=== PATIENT | female | born 1955 | race Caucasian/White ===

== ENCOUNTER → 2017-10-14 14:52 | Outpatient (CLI) | payer OTHER, SELFPAY ==
[2017-10-14 17:40] LABS: Alanine Aminotransferase 25 IU/L (9-52); Aspartate Aminotransferase 31 IU/L (14-36)
[2017-10-14 18:10] LABS: Thyroid Stimulating Hormone 6.65 uIU/mL (0.47-4.68)
== END ==
PROVIDERS: PCP Physician Assistant; Visit Provider Naturopath
DX: E06.3 Autoimmune thyroiditis (principal); R94.5 Abnormal results of liver function studies
CPT/HCPCS: 36415; 84443; 84450; 84460

== ENCOUNTER → 2017-12-27 15:11 | Outpatient (CLI) | payer OTHER, SELFPAY ==
[2017-12-27 16:51] LABS: Free T3, Triiodothyronine Free 2.13 pg/mL (2.77-5.27); Free T4, Direct Thyroxine 0.35 ng/dL (0.78-2.19)
== END ==
PROVIDERS: PCP Physician Assistant; Visit Provider Naturopath
DX: E06.3 Autoimmune thyroiditis (principal)
CPT/HCPCS: 36415; 84439; 84443; 84481

== ENCOUNTER → 2018-02-17 07:38 | Outpatient (CLI) | payer OTHER, SELFPAY ==
[2018-02-17 08:49] LABS: Phosphorous 4.7 mg/dL (2.8-4.1)
[2018-02-17 09:07] LABS: Free T4, Direct Thyroxine 1.41 ng/dL (0.78-2.19)
[2018-02-17 09:21] LABS: Thyroid Stimulating Hormone 7.01 uIU/mL (0.47-4.68)
[2018-02-18 14:27] LABS: Parathyroid Hormone Int 32 pg/mL (14-64)
[2018-02-23 15:56] LABS: N-Telopeptide Serum 27.3 nM BCE (6.2-19.0)
== END ==
PROVIDERS: PCP Physician Assistant; Visit Provider Nurse Practitioner
DX: M81.0 Age-related osteoporosis without current pathological fracture (principal); E03.9 Hypothyroidism, unspecified
CPT/HCPCS: 36415; 82310; 82523; 83970; 84100; 84439; 84443

== ENCOUNTER → 2018-02-23 14:34 | Outpatient (CLI) | payer OTHER, SELFPAY ==
[2018-02-23 15:36] LABS: Add Manual Diff / Slide Review NO; Basophils Percent Auto 0.5 % (0-2); Eosinophils Percent Auto 0.7 % (2-4); Hematocrit 37.4 % (36-46); Hemoglobin 13.4 g/dL (12.0-16.0); Mean Corpuscular HGB Conc 35.8 % (30-36); Mean Corpuscular Hemoglobin 34.2 PG (26-34); Mean Corpuscular Volume 95.5 fL (80-100); Monocytes Percent Auto 5.5 % (3-14); Neutrophils Absolute Auto 2600 /uL (3000-5900); Neutrophils Percent Auto 69.3 % (50-75); Platelet Count 152 X10^3/uL (150-400); Red Blood Cell Count 3.91 X10^6/uL (4.0-5.2); Red Cell Distribution Width 12.8 % (11.6-14.8); White Blood Cell Count 3.8 X10^3/uL (4.5-11.0)
== END ==
PROVIDERS: PCP Physician Assistant; Visit Provider Internal Medicine Hematology & Oncology
DX: D72.819 Decreased white blood cell count, unspecified (principal)
CPT/HCPCS: 36415; 85025

== ENCOUNTER → 2018-04-04 14:25 | Outpatient (CLI) | payer OTHER, SELFPAY ==
[2018-04-04 15:04] LABS: Hematocrit 39.8 % (36-46); Hemoglobin 13.9 g/dL (12.0-16.0); Mean Corpuscular HGB Conc 34.9 % (30-36); Mean Corpuscular Hemoglobin 32.8 PG (26-34); Mean Corpuscular Volume 93.8 fL (80-100); Platelet Count 135 X10^3/uL (150-400); Red Blood Cell Count 4.24 X10^6/uL (4.0-5.2); Red Cell Distribution Width 11.9 % (11.6-14.8); White Blood Cell Count 4.4 X10^3/uL (4.5-11.0)
[2018-04-04 15:49] LABS: Alanine Aminotransferase 42 IU/L (9-52); Albumin 4.4 g/dL (3.5-5.0); Albumin Globulin Ratio 1.2 (1.0-2.8); Alkaline Phosphatase 73 U/L (38-126); Aspartate Aminotransferase 44 IU/L (14-36); BUN Creatinine Ratio 16.7 (6-22); Bilirubin Total 0.5 mg/dL (0.2-1.3); Blood Urea Nitrogen 10 mg/dL (7-17); Calcium 9.2 mg/dL (8.4-10.2); Carbon Dioxide 29 mmol/L (22-32); Chloride 98 mmol/L (98-107); Estimated Glomerular Filt Rate > 60.0 mL/min (>60); Globulin 3.6 g/dL (1.7-4.1); Glucose 93 mg/dL (80-110); HEMOLYSIS < 15 (0-50); Sodium 137 mmol/L (137-145)
[2018-04-04 16:44] LABS: RBC Morphology Normal Morphology
== END ==
PROVIDERS: PCP Physician Assistant; Visit Provider Internal Medicine Hematology & Oncology
DX: D75.9 Disease of blood and blood-forming organs, unspecified (principal)
CPT/HCPCS: 36415; 80053; 85025

== ENCOUNTER → 2018-05-26 12:16 | Outpatient (CLI) | payer OTHER, SELFPAY | PROVIDERS: PCP Physician Assistant; Visit Provider Physician Assistant | DX: R68.89 Other general symptoms and signs (principal) | CPT/HCPCS: 87400 ==

== ENCOUNTER → 2018-06-16 13:32 | Outpatient (CLI) | payer OTHER, SELFPAY ==
[2018-06-16 14:44] LABS: Free T3, Triiodothyronine Free 3.55 pg/mL (2.77-5.27); Free T4, Direct Thyroxine 1.91 ng/dL (0.78-2.19)
[2018-06-16 14:58] LABS: Thyroid Stimulating Hormone 0.38 uIU/mL (0.47-4.68)
[2018-06-18 18:17] LABS: Thyroid Peroxidase Antibodies 175 IU/mL (< 9)
== END ==
PROVIDERS: Family Provider Nurse Practitioner; PCP Physician Assistant; Visit Provider Naturopath
DX: E06.3 Autoimmune thyroiditis (principal)
CPT/HCPCS: 36415; 84439; 84443; 84481; 86376

== ENCOUNTER → 2018-08-17 16:01 | Outpatient (CLI) | payer OTHER, SELFPAY ==
[2018-08-17 18:41] LABS: Thyroid Stimulating Hormone 0.16 uIU/mL (0.47-4.68)
== END ==
PROVIDERS: Family Provider Physician Assistant; PCP Physician Assistant; Visit Provider Naturopath
DX: E06.3 Autoimmune thyroiditis (principal)
CPT/HCPCS: 36415; 84443

== ENCOUNTER → 2018-11-08 13:47 | Outpatient (CLI) | payer OTHER, SELFPAY ==
[2018-11-08 15:17] LABS: Free T3, Triiodothyronine Free 2.49 pg/mL (2.77-5.27)
[2018-11-08 15:31] LABS: Thyroid Stimulating Hormone 2.94 uIU/mL (0.47-4.68)
== END ==
PROVIDERS: Family Provider Physician Assistant; PCP Physician Assistant; Visit Provider Naturopath
DX: E06.3 Autoimmune thyroiditis (principal)
CPT/HCPCS: 36415; 84443; 84481

== ENCOUNTER → 2019-02-03 14:18 | Outpatient (CLI) | payer OTHER, SELFPAY ==
[2019-02-03 15:52] LABS: Free T3, Triiodothyronine Free 3.75 pg/mL (2.77-5.27)
[2019-02-03 16:06] LABS: Thyroid Stimulating Hormone 0.23 uIU/mL (0.47-4.68)
== END ==
PROVIDERS: Family Provider Physician Assistant; PCP Physician Assistant; Visit Provider Naturopath
DX: E06.3 Autoimmune thyroiditis (principal)
CPT/HCPCS: 36415; 84443; 84481

== ENCOUNTER → 2019-05-30 13:36 | Outpatient (CLI) | payer OTHER, SELFPAY ==
[2019-05-30 15:19] LABS: Free T4, Direct Thyroxine 1.49 ng/dL (0.78-2.19)
[2019-05-30 15:33] LABS: Thyroid Stimulating Hormone 0.07 uIU/mL (0.47-4.68)
== END ==
PROVIDERS: Family Provider Physician Assistant; PCP Naturopath; Referring Provider Naturopath; Visit Provider Naturopath
DX: E06.3 Autoimmune thyroiditis (principal)
CPT/HCPCS: 36415; 84439; 84443; 84481; 86376

== ENCOUNTER → 2019-08-09 14:03 | Outpatient (CLI) | payer OTHER, SELFPAY ==
[2019-08-09 16:40] LABS: Thyroid Stimulating Hormone 0.65 uIU/mL (0.47-4.68)
== END ==
PROVIDERS: Family Provider Physician Assistant; PCP Naturopath; Referring Provider Naturopath; Visit Provider Naturopath
DX: E06.3 Autoimmune thyroiditis (principal)
CPT/HCPCS: 36415; 84443

== ENCOUNTER → 2019-10-12 13:47 | Outpatient (CLI) | payer OTHER, SELFPAY ==
[2019-10-12 15:38] LABS: Free T3, Triiodothyronine Free 3.07 pg/mL (2.77-5.27); Free T4, Direct Thyroxine 1.25 ng/dL (0.78-2.19)
[2019-10-12 15:52] LABS: Thyroid Stimulating Hormone 0.741 uIU/mL (0.47-4.68)
== END ==
PROVIDERS: Family Provider Physician Assistant; PCP Naturopath; Referring Provider Naturopath; Visit Provider Naturopath
DX: E06.3 Autoimmune thyroiditis (principal)
CPT/HCPCS: 36415; 84439; 84443; 84481

== ENCOUNTER → 2020-10-01 07:36 | Outpatient (CLI) | payer OTHER, SELFPAY ==
[2020-10-01 09:33] LABS: Add Manual Diff / Slide Review NO; Basophils Absolute Auto 0 /uL (0-100); Basophils Percent Auto 0.6 % (0-2); Eosinophils Absolute Auto 200 /uL (0-450); Eosinophils Percent Auto 5.7 % (2-4); Hematocrit 39.5 % (36-46); Lymphocytes Absolute Auto 1100 /uL (1100-4500); Lymphocytes Percent Auto 33.6 % (25-40); Mean Corpuscular HGB Conc 35.5 % (30-36); Mean Corpuscular Hemoglobin 32.8 PG (26-34); Mean Corpuscular Volume 92.5 fL (80-100); Monocytes Absolute Auto 200 /uL (0-900); Neutrophils Absolute Auto 1800 /uL (1500-7000); Neutrophils Percent Auto 54.1 % (50-75); Platelet Count 157 X10^3/uL (150-400); Red Blood Cell Count 4.27 X10^6/uL (4.0-5.2); White Blood Cell Count 3.4 X10^3/uL (4.5-11.0)
[2020-10-01 09:45] LABS: Alanine Aminotransferase 27 IU/L (<35); Albumin 4.4 g/dL (3.5-5.0); Albumin Globulin Ratio 1.1 (1.0-2.8); Alkaline Phosphatase 59 U/L (38-126); Aspartate Aminotransferase 45 IU/L (14-36); BUN Creatinine Ratio 21.7 (6-22); Bilirubin Total 0.6 mg/dL (0.2-1.3); Blood Urea Nitrogen 13 mg/dL (7-17); Calcium 9.2 mg/dL (8.4-10.2); Carbon Dioxide 30 mmol/L (22-32); Chloride 100 mmol/L (98-107); Cholesterol 222 mg/dL (140-199); Estimated Glomerular Filt Rate > 60.0 mL/min (>60); Glucose 95 mg/dL (80-110); HDL Cholesterol 66 mg/dL (40-60); HEMOLYSIS < 15 (0-50); LDL Cholesterol Calculated 135 mg/dL (<100); Potassium 3.8 mmol/L (3.4-5.1); Sodium 137 mmol/L (137-145); Total Protein 8.4 g/dL (6.3-8.2); Triglycerides 107 mg/dL (35-150)
[2020-10-01 10:16] LABS: Thyroid Stimulating Hormone 9.22 uIU/mL (0.47-4.68)
[2020-10-02 06:07] LABS: Thyroid Peroxidase Antibodies 173 IU/mL (0-34)
== END ==
PROVIDERS: Family Provider Physician Assistant; PCP Naturopath; Referring Provider Naturopath; Visit Provider Naturopath
DX: Z00.00 Encounter for general adult medical examination without abnormal findings (principal); E06.3 Autoimmune thyroiditis
CPT/HCPCS: 36415; 80053; 80061; 84443; 85025; 86376

== ENCOUNTER → 2020-10-18 14:19 | Outpatient (CLI) | payer OTHER, SELFPAY ==
[2020-10-18 15:19] LABS: Add Manual Diff / Slide Review NO; Basophils Absolute Auto 0 /uL (0-100); Basophils Percent Auto 0.5 % (0-2); Eosinophils Absolute Auto 200 /uL (0-450); Eosinophils Percent Auto 4.6 % (2-4); Hematocrit 38.3 % (36-46); Hemoglobin 13.5 g/dL (12.0-16.0); Lymphocytes Absolute Auto 1300 /uL (1100-4500); Lymphocytes Percent Auto 30.8 % (25-40); Mean Corpuscular HGB Conc 35.1 % (30-36); Mean Corpuscular Hemoglobin 32.9 PG (26-34); Mean Corpuscular Volume 93.7 fL (80-100); Monocytes Absolute Auto 300 /uL (0-900); Monocytes Percent Auto 6.3 % (3-14); Neutrophils Absolute Auto 2500 /uL (1500-7000); Neutrophils Percent Auto 57.8 % (50-75); Platelet Count 159 X10^3/uL (150-400); Red Blood Cell Count 4.09 X10^6/uL (4.0-5.2); Red Cell Distribution Width 12.8 % (11.6-14.8); White Blood Cell Count 4.3 X10^3/uL (4.5-11.0)
[2020-10-18 16:04] LABS: Thyroid Stimulating Hormone 1.07 uIU/mL (0.47-4.68)
== END ==
PROVIDERS: Family Provider Physician Assistant; PCP Naturopath
DX: E06.3 Autoimmune thyroiditis (principal); D70.8 Other neutropenia
CPT/HCPCS: 36415; 84443; 85025

== ENCOUNTER 2020-11-28 11:49 | Outpatient (RCR) | payer MEDICARE, OTHER, SELFPAY ==
--- NOTE | 2020-11-28 15:26 | PT.OIE ---
Current Diagnoses Benign paroxysmal vertigo, right ear (11/28/20) Past Surgical History History of tonsillectomy Status post hysterectomy Visit Care Team Role Provider Type Mariola Diaz ND Primary Care Provider Non-Staff Specialty: Naturopathy Address: [address] [place] [address] Email: Alessandro Meyers MD Attending Provider Physician Referring Provider Specialty: Ear, Nose, Throat Address: [address] [place] [address] Email: [email or web address] Physical Therapy Initial Evaluation PT-OP-A Visit Information Start: 11/28/20 15:16 Freq: Status: Active Protocol: Document 11/28/20 12:00 DCW (Rec: 11/28/20 15:26 [facility] [id number]) Out-Patient Physical Therapy Visit Information Visit Information Visit Type Initial Evaluation Visit Start Time 12:00 Visit Stop Time 12:40 Total Visit Minutes 40 Visit Number 1 Number of PICKER FEEDER Visits 0 Evaluation Information Evaluation Date 11/28/20 PT-OP-B Current Condition Start: 11/28/20 15:16 Freq: Status: Active Protocol: Document 11/28/20 12:00 DCW (Rec: 11/28/20 15:26 [facility] [id number]) Current Condition History of Current Condition Onset Date 3 Months Current Complaints Positional vertigo History of Current Condition Pt is a 65 year old female complaining of a three month history of motion-induced vertigo. Pt reports episodes last a few seconds, and are provoked by turning over in bed or looking up. Pt denies recent hearing changes, tinnitus, diplopia, dysarthria , discoordination, or decreased mentation/ consciousness. Pt denies hx of HTN, hyperlipidemia, diabetes , arrhythmia, head trauma, seizure, or CVA. Treatment Goals Patient/Caregiver Goals Eliminate vertigo PT-OP-C Subjective Start: 11/28/20 15:16 Freq: Status: Active Protocol: Document 11/28/20 12:00 DCW (Rec: 11/28/20 15:26 DC[facility] [id number]) OP-PT Subjective Patient Comments Patient Comments I've had these symptoms for a few months now, so I've gotten good at avoiding positions that trigger it. Patient Questionnaires Dizziness Handicap Inventory DHI Score 10% DHI Functional Impairment 1 to 19% Impaired (Score 1-19) OP-PT Pain Assessment Pain Assessment Grid Paper Pain Assessment Grid Completed No pain PT-OP-O Vestibular Start: 11/28/20 15:16 Freq: Status: Active Protocol: Document 11/28/20 12:00 DCW (Rec: 11/28/20 15:26 [facility] [id number]) Vestibular Assessment Screening Tests Vestibular Artery Screen Negative Auditory Tests Colon Test Within normal limits Rinne Test Negative Air Conduction Results Equal Visual Testing Smooth Pursuits Horizontal WNL Smooth Pursuits Vertical WNL Saccades Horizontal WNL Saccades Vertical WNL Gaze Evoked Nystagmus With Fixation Negative Gaze Evoked Nystagmus Without Fixation Negative Heave Test Negative Thrust Head Negative Positional Testing [place]-Hallpike Positive Right,Upbeating,< 60 Seconds PT-OP-Q Treatments Start: 11/28/20 15:16 Freq: Status: Active Protocol: Document 11/28/20 12:00 DCW (Rec: 11/28/20 15:26 [facility] [id number]) Canalithic Repositioning BPPV Treatment Bri Affected Canal(s) R posterior Reps x2 Comments Modified Bri PT-OP-T Assessment and Plan Start: 11/28/20 15:16 Freq: Status: Active Protocol: Document 11/28/20 12:00 DCW (Rec: 11/28/20 15:26 [facility] [id number]) Physical Therapy Assessment Rehab Potential Rehabilitation Potential Excellent Evaluation Complexity Number of Personal Factors/Comorbidities 0 Number of Body Systems Impaired 1-2 Clinical Presentation at Evaluation Unstable Impairments Impairments Balance,Functional Activities, Functional Mobility,Vestibular Goals Two Impairment Pt presents with a positive right [place]-Hallpike test Short Term Goal (STG) Positional testing negative bilaterally STG Duration 12/28/20 One Impairment Pt experiences vertigo with bed mobility Short Term Goal (STG) Pt to perform bed mobility with zero vertiginous symptoms for one week STG Duration 12/28/20 Assessment Summary Assessment During right [place]-Hallpike test , pt complained of vertigo and demonstrated up-beating, torsional nystagmus lasting approximately 15 seconds, consistent with diagnosis of right-sided posterior canal BPPV, canalithiasis-type. Pt was treated with a right-sided modified Bri maneuver. Pt complained of symptoms in the first and third position, which is normally indicative of a successful treatment. Further positional testing was negative. Pt was educated on BPPV, expectations for treatment, possible recurrence (BPPV has a ~50% recurrence rate in the five years following treatment), and post -Bri restrictions. Pt to return in ~1 week for a follow -up appointment, and intermittently afterward as indicated for treatment of BPPV. Physical Therapy Plan Frequency and Duration Frequency of Treatment 1x/Week Duration of Treatment one month Plan of Care Start Date 11/28/20 Plan of Care End Date 12/28/20 Therapeutic Interventions Therapeutic Interventions Balance Training,Canalithic Repositioning,Manual Therapy, Neuromuscular Re-education, Vestibular Rehabilitation Next Visit Focus/Plan Next Note Type Treatment Note Next Visit Plan Positional testing, CRM as needed
--- NOTE | 2020-11-28 15:26 | PT.OPPOC ---
Physical, Occupational & Speech Therapy At [facility] Current Diagnoses Benign paroxysmal vertigo, right ear (11/28/20) Visit Care Team Role Provider Type Mariola Diaz ND Primary Care Provider Non-Staff Specialty: Naturopathy Address: [address] [place] [address], [id number] Email: Alessandro Meyers MD Attending Provider Physician Referring Provider Specialty: Ear, Nose, Throat Address: [address] [place] [address] Email: [email or web address] Plan Of Care PT-OP-T Assessment and Plan Start: 11/28/20 15:16 Freq: Status: Active Protocol: Document 11/28/20 12:00 DCW (Rec: 11/28/20 15:26 DC[facility] [id number]) Physical Therapy Assessment Rehab Potential Rehabilitation Potential Excellent Evaluation Complexity Number of Personal Factors/Comorbidities 0 Number of Body Systems Impaired 1-2 Clinical Presentation at Evaluation Unstable Impairments Impairments Balance,Functional Activities, Functional Mobility,Vestibular Goals Two Impairment Pt presents with a positive right [place]-Hallpike test Short Term Goal (STG) Positional testing negative bilaterally STG Duration 12/28/20 One Impairment Pt experiences vertigo with bed mobility Short Term Goal (STG) Pt to perform bed mobility with zero vertiginous symptoms for one week STG Duration 12/28/20 Assessment Summary Assessment During right [place]-Hallpike test , pt complained of vertigo and demonstrated up-beating, torsional nystagmus lasting approximately 15 seconds, consistent with diagnosis of right-sided posterior canal BPPV, canalithiasis-type. Pt was treated with a right-sided modified Bri maneuver. Pt complained of symptoms in the first and third position, which is normally indicative of a successful treatment. Further positional testing was negative. Pt was educated on BPPV, expectations for treatment, possible recurrence (BPPV has a ~50% recurrence rate in the five years following treatment), and post -Bri restrictions. Pt to return in ~1 week for a follow -up appointment, and intermittently afterward as indicated for treatment of BPPV. Physical Therapy Plan Frequency and Duration Frequency of Treatment 1x/Week Duration of Treatment one month Plan of Care Start Date 11/28/20 Plan of Care End Date 12/28/20 Therapeutic Interventions Therapeutic Interventions Balance Training,Canalithic Repositioning,Manual Therapy, Neuromuscular Re-education, Vestibular Rehabilitation Next Visit Focus/Plan Next Note Type Treatment Note Next Visit Plan Positional testing, CRM as needed Plan of Care Dates Plan of Care Start Date 11/28/20 Plan of Care End Date 12/28/20 Electronically Signed by: Gutierrez Cordero, PT 11/28/20 8902 Please Sign and Return: I have reviewed this Plan of Care and certify that the skilled therapy services above are required to meet the patient?s needs. Physician Signature Date Printed Name and Credentials Clinical Instructor Signature Printed Name and Credentials
--- NOTE | 2020-12-12 09:33 | PT.OPDS ---
Current Diagnoses Benign paroxysmal vertigo, right ear (11/28/20) Visit Care Team Role Provider Type Mariolaluc Diaz ND Primary Care Provider Non-Staff Specialty: Naturopathy Address: [address] [place] [address], [id number] Email: Alessandro Meyers MD Attending Provider Physician Referring Provider Specialty: Ear, Nose, Throat Address: [address] [place] [address] Email: [email or web address] Visit Number Visit Number 1 Discharge Summary PT-OP-B Current Condition Start: 11/28/20 15:16 Freq: Status: Active Protocol: Document 11/28/20 12:00 DCW (Rec: 11/28/20 15:26 DCW [id number]) Current Condition History of Current Condition Onset Date 3 Months Current Complaints Positional vertigo History of Current Condition Pt is a 65 year old female complaining of a three month history of motion-induced vertigo. Pt reports episodes last a few seconds, and are provoked by turning over in bed or looking up. Pt denies recent hearing changes, tinnitus, diplopia, dysarthria , discoordination, or decreased mentation/ consciousness. Pt denies hx of HTN, hyperlipidemia, diabetes , arrhythmia, head trauma, seizure, or CVA. Treatment Goals Patient/Caregiver Goals Eliminate vertigo PT-OP-C Subjective Start: 11/28/20 15:16 Freq: Status: Active Protocol: Document 11/28/20 12:00 DCW (Rec: 11/28/20 15:26 [facility] [id number]) OP-PT Subjective Patient Comments Patient Comments I've had these symptoms for a few months now, so I've gotten good at avoiding positions that trigger it. Patient Questionnaires Dizziness Handicap Inventory DHI Score 10% DHI Functional Impairment 1 to 19% Impaired (Score 1-19) OP-PT Pain Assessment Pain Assessment Grid Paper Pain Assessment Grid Completed No pain PT-OP-O Vestibular Start: 11/28/20 15:16 Freq: Status: Active Protocol: Document 11/28/20 12:00 DCW (Rec: 11/28/20 15:26 DCW [id number]) Vestibular Assessment Screening Tests Vestibular Artery Screen Negative Auditory Tests Colon Test Within normal limits Rinne Test Negative Air Conduction Results Equal Visual Testing Smooth Pursuits Horizontal WNL Smooth Pursuits Vertical WNL Saccades Horizontal WNL Saccades Vertical WNL Gaze Evoked Nystagmus With Fixation Negative Gaze Evoked Nystagmus Without Fixation Negative Heave Test Negative Thrust Head Negative Positional Testing [place]-Hallpike Positive Right,Upbeating,< 60 Seconds PT-OP-T Assessment and Plan Start: 11/28/20 15:16 Freq: Status: Active Protocol: Document 12/12/20 09:32 [facility] (Rec: 12/12/20 09:33 [facility] [id number]) Physical Therapy Assessment Assessment Summary Assessment Pt canceled upcoming follow-up appointment, reporting she is no longer symptomatic and requesting discharge. Pt will be discharged at this time, will require a new referral in order to return to skilled therapy. Physical Therapy Plan Discharge Physical Therapy Discharge Reasons Goals Met Next Visit Focus/Plan Next Note Type Discharge Summary
== END 2020-12-12 10:13 | disposition home or self-care (01) ==
LOC: PHYS 11:49
PROVIDERS: PCP Naturopath; Referring Provider Otolaryngology; Visit Provider Otolaryngology
DX: H81.11 Benign paroxysmal vertigo, right ear (principal)
CPT/HCPCS: 95992; 97161

== ENCOUNTER → 2020-12-16 12:54 | Outpatient (CLI) | payer MEDICARE, OTHER, SELFPAY ==
[2020-12-16 14:08] LABS: Free T3, Triiodothyronine Free 3.19 pg/mL (2.77-5.27); Free T4, Direct Thyroxine 1.36 ng/dL (0.78-2.19)
[2020-12-16 14:21] LABS: Thyroid Stimulating Hormone 2.43 uIU/mL (0.47-4.68)
== END ==
PROVIDERS: PCP Family Medicine; Referring Provider Family Medicine; Visit Provider Family Medicine
DX: E03.9 Hypothyroidism, unspecified (principal)
CPT/HCPCS: 36415; 84439; 84443; 84481

== ENCOUNTER → 2021-04-17 13:51 | Outpatient (CLI) | payer MEDICARE, OTHER, SELFPAY ==
[2021-04-17 15:16] LABS: Free T3, Triiodothyronine Free 2.69 pg/mL (2.77-5.27); Free T4, Direct Thyroxine 1.45 ng/dL (0.78-2.19)
[2021-04-17 15:29] LABS: Thyroid Stimulating Hormone 4.02 uIU/mL (0.47-4.68)
[2021-04-17 17:37] LABS: Vitamin D 25 Hydroxy (D3) 73.3 ng/mL (30.0-100.0)
== END ==
PROVIDERS: PCP Family Medicine; Referring Provider Family Medicine; Visit Provider Family Medicine
DX: E03.8 Other specified hypothyroidism (principal); E06.3 Autoimmune thyroiditis; Z13.21 Encounter for screening for nutritional disorder
CPT/HCPCS: 36415; 82306; 84439; 84443; 84481

== ENCOUNTER → 2021-05-14 10:16 | Outpatient (CLI) | payer MEDICARE, OTHER, SELFPAY | PROVIDERS: PCP Family Medicine; Visit Provider Physician Assistant | DX: R30.0 Dysuria (principal) | CPT/HCPCS: 87086 ==

== ENCOUNTER → 2021-09-10 14:44 | Outpatient (CLI) | payer MEDICARE, OTHER, SELFPAY ==
[2021-09-10 16:49] LABS: Thyroid Stimulating Hormone 0.256 uIU/mL (0.47-4.68)
[2021-09-11 21:03] LABS: Free T3, Triiodothyronine Free 3.28 pg/mL (2.77-5.27); Free T4, Direct Thyroxine 1.47 ng/dL (0.78-2.19)
== END ==
PROVIDERS: Family Provider Family Medicine; PCP Family Medicine; Referring Provider Family Medicine; Visit Provider Family Medicine
DX: E03.8 Other specified hypothyroidism (principal); E06.3 Autoimmune thyroiditis
CPT/HCPCS: 36415; 84439; 84443; 84481

== ENCOUNTER → 2021-09-30 15:25 | Outpatient (CLI) | payer MEDICARE, OTHER, SELFPAY ==
--- NOTE | 2021-09-30 15:26 | DI.RAD.S_ITS ---
PROCEDURE: XR TOE LT MIN 2V INDICATIONS: second toe likely fracture TECHNIQUE: 3 views of the 2nd toe(s) acquired. COMPARISON: [facility], , TOE MINIMUM 2 VIEWS LEFT, 11/18/2012, 12:11. FINDINGS: Bones: Transverse fracture through the head of the 2nd middle phalanx. Generalized decreased osseous mineralization present. Soft tissues: No suspicious soft tissue densities. IMPRESSION: Nondisplaced fracture through the 2nd middle phalanx, probably subacute. Approved by: Chuck Harrison M.D. on 09/30/2021 at 17:18
== END ==
PROVIDERS: Family Provider Family Medicine; PCP Family Medicine; Referring Provider Family Medicine; Visit Provider Family Medicine
DX: S92.525A Nondisplaced fracture of middle phalanx of left lesser toe(s), initial encounter for closed fracture (principal); M79.675 Pain in left toe(s); X58.XXXA Exposure to other specified factors, initial encounter
CPT/HCPCS: 73660

== ENCOUNTER 2021-10-23 14:30 | Outpatient (RCR) | payer MEDICARE, OTHER, SELFPAY ==
--- NOTE | 2021-07-29 13:45 | PT.OPPOC ---
Physical, Occupational & Speech Therapy At [facility] Current Diagnoses Other specified disorders of muscle (07/29/21) Other female genital prolapse (07/29/21) Visit Care Team Role Provider Type Evaristo Steen DO Attending Provider Physician Family Provider Primary Care Provider Referring Provider Specialty: Family Practice Address: [address] [place] [address], [facility] Email: Plan Of Care PT-OP-T Assessment and Plan Start: 07/29/21 12:59 Freq: Status: Active Protocol: Document 07/29/21 13:00 [facility] (Rec: 07/29/21 13:50 [facility] [id number]) Physical Therapy Assessment Rehab Potential Rehabilitation Potential Excellent Evaluation Complexity Number of Personal Factors/Comorbidities 0 Number of Body Systems Impaired 1-2 Clinical Presentation at Evaluation Stable Goals 4 Impairment Myofascial tightness and guarding in the suprapubic fascia and over the bladder Pharmacy Resource Tech Goal (LTG) MFR techniques and stretches will be used to decrease the guarding and tightness of the suprapubic fascia improving the bladders ability to fully fill LTG Duration 12 weeks 3 Impairment Ami reports frequent urgency and frequency and feels that she retains urine. She notes she will often void up to 3 times before leaving the house. Short Term Goal (STG) Ami is educated in the urge deference technique and bladder retraining STG Duration 4 weeks Pharmacy Resource Tech Goal (LTG) Ami reports a overall reduction in urgency and frequency. She is able to reduce her voiding to every 2. 5-3 hours during the day LTG Duration 12 weeks 2 Impairment Guarding and tightness of the left levator ani from 3-6 on the pelvic clock as well as the left obturator internus Short Term Goal (STG) Ami is educated in stretches for the pelvic floor and hip to help reduce tension and guarding of the levator ani. STG Duration 5 weeks 1 Impairment Urethral pain that began 4 months ago Pharmacy Resource Tech Goal (LTG) pt reports a overall reduction with urethral pain and reports no pain with voiding LTG Duration 12 weeks Assessment Summary Assessment Ami is a 65 year old 6 para 3 s/p hysterectomy with increased vaginal dryness. She is using vaginal estrogen cream. Ami's chief complaint is of urinary urgency, urinary retention, and urethral pain. The urethral pain began 3-4 months ago and the estrogen cream has been helping some with decreasing pain. With examination today she does have a great deal of myofascial restrictions over the bladder, over her hysterectomy scar, and suprapubic fascia. With pelvic floor examination there is left sided guarding from 3 -6 on the pelvic clock as well as obturator internus tightness. Ami is able to contract all aspects of her pelvic floor but endurance is limited and it is difficult for her to relax her pelvic floor. Treatment will focus on both endurance training but also full pelvic floor relaxation to help promote fully emptying her bladder. MFR techniques will be performed over the suprapubic fasica and bladder. Pt will be instructed in stretches both for her hips as well as her pelvic floor. Ami is a good candidate for PT Physical Therapy Plan Frequency and Duration Frequency of Treatment 1x/Week Duration of Treatment 12 Plan of Care Start Date 07/29/21 Plan of Care End Date 10/21/21 Therapeutic Interventions Therapeutic Interventions Home Exercise Program,Manual Therapy,Neuromuscular Re- education,Patient/Caregiver Education,Self-Care/Home Management,Soft Tissue Mobilization,Therapeutic Exercises Modalities Biofeedback Next Visit Focus/Plan Next Note Type Treatment Note Next Visit Plan Begin EMG biofeedback for endurance training of the pelvic floor, relaxed awareness of the pelvic floor, manual therapy techniques for the suprapubic fascia Plan of Care Dates Plan of Care Start Date 07/29/21 Plan of Care End Date 10/21/21 Electronically Signed by: Reshma Mariano, PT 08/05/21 1016 If you are in agreement with this Plan of Care, please return a signed and dated copy. I have reviewed this Plan of Care and certify that the skilled therapy services above are required to meet the patient?s needs. Physician Signature Date Printed Name and Credentials Clinical Instructor Signature Printed Name and Credentials
--- NOTE | 2021-07-29 13:45 | PT.OIE ---
Current Diagnoses Other specified disorders of muscle (07/29/21) Other female genital prolapse (07/29/21) Past Medical History (Last Updated 04/03/21 @ 13:23 by Evaristo Steen DO) Cardiac arrhythmia (~2017) Chicken pox (~1959) Chronic idiopathic thrombocytopenia GERD (gastroesophageal reflux disease) (~2018) History of repair of rectocele (~1992) Hx of lymphopenia Osteoporosis (~2007) Piriformis syndrome of both sides Rheumatoid arthritis (~1985) Rubella (~1960) Skin cancer (~2017) Tachycardia Past Surgical History (Last Updated 01/27/21 @ 19:22 by Binta Cornejo) Anesthesia History of repair of rectocele (~1992) History of tonsillectomy Status post hysterectomy (~1990) Visit Care Team Role Provider Type Evaristo Steen DO Attending Provider Physician Family Provider Primary Care Provider Referring Provider Specialty: Family Practice Address: [address] [place] [address] Email: Physical Therapy Initial Evaluation PT-OP-A Visit Information Start: 07/29/21 12:59 Freq: Status: Active Protocol: Document 07/29/21 13:00 [facility] (Rec: 07/29/21 14:56 [facility] [id number]) Out-Patient Physical Therapy Visit Information Visit Information Visit Type Initial Evaluation Visit Start Time 13:00 Visit Stop Time 13:45 Total Visit Minutes 45 Visit Number 1 Evaluation Information Evaluation Date 07/29/21 PT-OP-B Current Condition Start: 07/29/21 12:59 Freq: Status: Active Protocol: Document 07/29/21 13:00 [facility] (Rec: 07/29/21 13:50 [facility] [id number]) Current Condition History of Current Condition Onset Date urethral pain began 3-4 months ago History of Current Condition The estrodial cream has been helping although she can still feel some symptoms, her primary complaint was urethral pain. She also saw her crew car driver who told her pelvic floor strengthening might help. hx of rectocele repair 1997. For the last 3 years she has had pain with intercourse due to things being too tight. No c/o leakage. Hx of ectopic in the 's, she ended up with a lot of adhesions She underwent a hysterectomy in 1992. She also has a history of urinary retention Pt notes she also has urgency, if she is getting ready to leave she will go into void x 3 times. Typical voiding is every hour to every couple of hours. Night time voiding is 1 xm per night to void. Treatment Goals Patient/Caregiver Goals goal to be able to hike and decreased c/o urgency and pain PT-OP-F Manual Assessment Start: 08/05/21 10:14 Freq: Status: Active Protocol: Document 07/29/21 13:00 [facility] (Rec: 08/05/21 10:15 [facility] [id number]) Manual Assessments Soft Tissue Assessment Soft Tissue Mobility Assessment tightness and scar tissue adhesions over the hysterectomy scar, myofasical restrictions in the suprapubic fascia and over the bladder PT-OP-I Pelvic Floor Start: 07/29/21 12:59 Freq: Status: Active Protocol: Document 07/29/21 13:00 [facility] (Rec: 07/29/21 13:50 [facility] [id number]) Pelvic Floor Assessment Urine Pelvic Floor Surgery Yes: hysterectomy and rectocele repair Urinary Symptoms Urge Sensation,Hesitancy, Incomplete Emptying Other Urinary Symptoms urethral irritation and pain, this has been getting better with the estrodial Voiding Frequency very hour to 1.5 hours, frequent voiding prior to leaving the house Pelvic Clock Pelvic Clock 3-6 Guarding Pelvic Clock 6-9 Tightness Inter-Rectal Assessment left sided guarded and obturator internus tightness Contraction Ability Voluntary Contraction Moderate Voluntary Relaxation Moderate Manual Muscle Testing Left 3 Manual Muscle Testing Right 3 Manual Muscle Testing Anterior 3 Manual Muscle Testing Posterior 3 PT-OP-Q Treatments Start: 07/29/21 12:59 Freq: Status: Active Protocol: Document 07/29/21 13:00 [facility] (Rec: 07/29/21 14:56 [facility] [id number]) Therapeutic Exercises Supine Exercises pelvic floor long holds Reps/Minutes x 10 reps holding 10 seconds and relaxing 10 seconds supine modified pelvic floor stretch Side bilateral Reps/Minutes hold 1-2 minutes 1-2 xms per day PT-OP-T Assessment and Plan Start: 07/29/21 12:59 Freq: Status: Active Protocol: Document 07/29/21 13:00 [facility] (Rec: 07/29/21 13:50 [facility] [id number]) Physical Therapy Assessment Rehab Potential Rehabilitation Potential Excellent Evaluation Complexity Number of Personal Factors/Comorbidities 0 Number of Body Systems Impaired 1-2 Clinical Presentation at Evaluation Stable Goals 4 Impairment Myofascial tightness and guarding in the suprapubic fascia and over the bladder Senior Care Goal (LTG) MFR techniques and stretches will be used to decrease the guarding and tightness of the suprapubic fascia improving the bladders ability to fully fill LTG Duration 12 weeks 3 Impairment Ami reports frequent urgency and frequency and feels that she retains urine. She notes she will often void up to 3 times before leaving the house. Short Term Goal (STG) Ami is educated in the urge deference technique and bladder retraining STG Duration 4 weeks Senior Care Goal (LTG) Ami reports a overall reduction in urgency and frequency. She is able to reduce her voiding to every 2. 5-3 hours during the day LTG Duration 12 weeks 2 Impairment Guarding and tightness of the left levator ani from 3-6 on the pelvic clock as well as the left obturator internus Short Term Goal (STG) Ami is educated in stretches for the pelvic floor and hip to help reduce tension and guarding of the levator ani. STG Duration 5 weeks 1 Impairment Urethral pain that began 4 months ago Senior Care Goal (LTG) pt reports a overall reduction with urethral pain and reports no pain with voiding LTG Duration 12 weeks Assessment Summary Assessment Ami is a 65 year old 6 para 3 s/p hysterectomy with increased vaginal dryness. She is using vaginal estrogen cream. Ami's chief complaint is of urinary urgency, urinary retention, and urethral pain. The urethral pain began 3-4 months ago and the estrogen cream has been helping some with decreasing pain. With examination today she does have a great deal of myofascial restrictions over the bladder, over her hysterectomy scar, and suprapubic fascia. With pelvic floor examination there is left sided guarding from 3 -6 on the pelvic clock as well as obturator internus tightness. Ami is able to contract all aspects of her pelvic floor but endurance is limited and it is difficult for her to relax her pelvic floor. Treatment will focus on both endurance training but also full pelvic floor relaxation to help promote fully emptying her bladder. MFR techniques will be performed over the suprapubic fasica and bladder. Pt will be instructed in stretches both for her hips as well as her pelvic floor. Ami is a good candidate for PT Physical Therapy Plan Frequency and Duration Frequency of Treatment 1x/Week Duration of Treatment 12 Plan of Care Start Date 07/29/21 Plan of Care End Date 10/21/21 Therapeutic Interventions Therapeutic Interventions Home Exercise Program,Manual Therapy,Neuromuscular Re- education,Patient/Caregiver Education,Self-Care/Home Management,Soft Tissue Mobilization,Therapeutic Exercises Modalities Biofeedback Next Visit Focus/Plan Next Note Type Treatment Note Next Visit Plan Begin EMG biofeedback for endurance training of the pelvic floor, relaxed awareness of the pelvic floor, manual therapy techniques for the suprapubic fascia
--- NOTE | 2021-08-07 12:47 | PT.OTN ---
Current Diagnoses Other specified disorders of muscle (08/07/21) Other female genital prolapse (08/07/21) Physical Therapy Treatment Note PT-OP-A Visit Information Start: 07/29/21 12:59 Freq: Status: Active Protocol: Document 08/07/21 11:23 [facility] (Rec: 08/07/21 12:23 [facility] [id number]) Out-Patient Physical Therapy Visit Information Visit Information Visit Type Treatment Note Visit Start Time 11:23 Visit Stop Time 12:07 Total Visit Minutes 45 Visit Number 2 PT-OP-B Current Condition Start: 07/29/21 12:59 Freq: Status: Active Protocol: Document 07/29/21 13:00 [facility] (Rec: 07/29/21 13:50 [facility] [id number]) Current Condition History of Current Condition Onset Date urethral pain began 3-4 months ago History of Current Condition The estrodial cream has been helping although she can still feel some symptoms, her primary complaint was urethral pain. She also saw her naturalpath who told her pelvic floor strengthening might help. hx of rectocele repair 1997. For the last 3 years she has had pain with intercourse due to things being too tight. No c/o leakage. Hx of ectopic in the , she ended up with a lot of adhesions She underwent a hysterectomy in 1992. She also has a history of urinary retention Pt notes she also has urgency, if she is getting ready to leave she will go into void x 3 times. Typical voiding is every hour to every couple of hours. Night time voiding is 1 xm per night to void. Treatment Goals Patient/Caregiver Goals goal to be able to hike and decreased c/o urgency and pain PT-OP-C Subjective Start: 07/29/21 12:59 Freq: Status: Active Protocol: Document 08/07/21 11:23 [facility] (Rec: 08/07/21 12:23 [facility] [id number]) OP-PT Subjective Patient Comments Patient Comments pt reports she is better and she noticied that with going to the bathroom she is trying to relax more now. her left hip has felt better too with the modified pelvic floor squat. She has been massaging her incision. She is down to one time having to void before she leaves the house. No c/o urethral pain today Patient Reported Progress Improving PT-OP-F Manual Assessment Start: 08/05/21 10:14 Freq: Status: Active Protocol: Document 07/29/21 13:00 [facility] (Rec: 08/05/21 10:15 [facility] [id number]) Manual Assessments Soft Tissue Assessment Soft Tissue Mobility Assessment tightness and scar tissue adhesions over the hysterectomy scar, myofasical restrictions in the suprapubic fascia and over the bladder PT-OP-I Pelvic Floor Start: 07/29/21 12:59 Freq: Status: Active Protocol: Document 07/29/21 13:00 [facility] (Rec: 07/29/21 13:50 [facility] [id number]) Pelvic Floor Assessment Urine Pelvic Floor Surgery Yes: hysterectomy and rectocele repair Urinary Symptoms Urge Sensation,Hesitancy, Incomplete Emptying Other Urinary Symptoms urethral irritation and pain, this has been getting better with the estrodial Voiding Frequency very hour to 1.5 hours, frequent voiding prior to leaving the house Pelvic Clock Pelvic Clock 3-6 Guarding Pelvic Clock 6-9 Tightness Inter-Rectal Assessment left sided guarded and obturator internus tightness Contraction Ability Voluntary Contraction Moderate Voluntary Relaxation Moderate Manual Muscle Testing Left 3 Manual Muscle Testing Right 3 Manual Muscle Testing Anterior 3 Manual Muscle Testing Posterior 3 PT-OP-Q Treatments Start: 07/29/21 12:59 Freq: Status: Active Protocol: Document 08/07/21 11:23 [facility] (Rec: 08/07/21 12:23 [facility] [id number]) Therapeutic Exercises Supine Exercises hip flexor stretch Reps/Minutes nevin test position hold 1 min diaphragmatic breathing Reps/Minutes x 4 minutes pelvic floor long holds Equipment Used EMG biofeedback 10 sec holds 10 sec relax Reps/Minutes average 13.8 and max 27.4 supine modified pelvic floor stretch Supine Exercise Name HEP Neuro Re-Education Treatment Other Activities EMG BIOFEEDBACK Details EMG biofeedback Comments EMG biofeedback for relaxed awareness of the pelvic floor and for awareness of recruitment from the side rodriguez of the levator ani PT-OP-T Assessment and Plan Start: 07/29/21 12:59 Freq: Status: Active Protocol: Document 08/07/21 11:23 [facility] (Rec: 08/07/21 12:23 [facility] [id number]) Physical Therapy Assessment Goals 4 Impairment Myofascial tightness and guarding in the suprapubic fascia and over the bladder Radiagraph Operator Goal (LTG) MFR techniques and stretches will be used to decrease the guarding and tightness of the suprapubic fascia improving the bladders ability to fully fill LTG Duration 12 weeks 3 Impairment Ami reports frequent urgency and frequency and feels that she retains urine. She notes she will often void up to 3 times before leaving the house. Short Term Goal (STG) Ami is educated in the urge deference technique and bladder retraining STG Duration 4 weeks Radiagraph Operator Goal (LTG) Ami reports a overall reduction in urgency and frequency. She is able to reduce her voiding to every 2. 5-3 hours during the day LTG Duration 12 weeks 2 Impairment Guarding and tightness of the left levator ani from 3-6 on the pelvic clock as well as the left obturator internus Short Term Goal (STG) Ami is educated in stretches for the pelvic floor and hip to help reduce tension and guarding of the levator ani. STG Duration 5 weeks 1 Impairment Urethral pain that began 4 months ago Jail Goal (LTG) pt reports a overall reduction with urethral pain and reports no pain with voiding LTG Duration 12 weeks Assessment Summary Assessment pt was able to relax to baseline on EMG biofedback, no c/o urethral pain, she has been using the large dilator. It took a few tries to be able to relax with it but she has been able to increase to 5 minutes. Today I added in iliopsoas stretching and diaphragmatic breathing as well as MFR techniques for the suprapubic fascia. She tolerated treatment well today Physical Therapy Plan Frequency and Duration Frequency of Treatment 1x/Week Duration of Treatment 12 Plan of Care Start Date 07/29/21 Plan of Care End Date 10/21/21 Therapeutic Interventions Therapeutic Interventions Home Exercise Program,Manual Therapy,Neuromuscular Re- education,Patient/Caregiver Education,Self-Care/Home Management,Soft Tissue Mobilization,Therapeutic Exercises Modalities Biofeedback Next Visit Focus/Plan Next Note Type Treatment Note Next Visit Plan continue with EMG biofeedback, endurance training and MFR over the suprapubic fascia, gentle hip stretching
--- NOTE | 2021-08-14 18:25 | PT.OTN ---
Current Diagnoses Other specified disorders of muscle (08/14/21) Other female genital prolapse (08/14/21) Physical Therapy Treatment Note PT-OP-A Visit Information Start: 07/29/21 12:59 Freq: Status: Active Protocol: Document 08/14/21 10:33 [facility] (Rec: 08/14/21 11:26 [facility] [id number]) Out-Patient Physical Therapy Visit Information Visit Information Visit Type Treatment Note Visit Start Time 10:33 Visit Stop Time 11:15 Total Visit Minutes 42 Visit Number 3 PT-OP-B Current Condition Start: 07/29/21 12:59 Freq: Status: Active Protocol: Document 07/29/21 13:00 [facility] (Rec: 07/29/21 13:50 [facility] [id number]) Current Condition History of Current Condition Onset Date urethral pain began 3-4 months ago History of Current Condition The estrodial cream has been helping although she can still feel some symptoms, her primary complaint was urethral pain. She also saw her naturalpath who told her pelvic floor strengthening might help. hx of rectocele repair 1997. For the last 3 years she has had pain with intercourse due to things being too tight. No c/o leakage. Hx of ectopic in the , she ended up with a lot of adhesions She underwent a hysterectomy in 1992. She also has a history of urinary retention Pt notes she also has urgency, if she is getting ready to leave she will go into void x 3 times. Typical voiding is every hour to every couple of hours. Night time voiding is 1 xm per night to void. Treatment Goals Patient/Caregiver Goals goal to be able to hike and decreased c/o urgency and pain PT-OP-C Subjective Start: 07/29/21 12:59 Freq: Status: Active Protocol: Document 08/14/21 10:33 [facility] (Rec: 08/14/21 11:26 [facility] [id number]) OP-PT Subjective Patient Comments Patient Comments pt reports she didn't have to use the bathroom 2-3 times before leaving the house today . She is measuring her urine Patient Reported Progress Improving PT-OP-F Manual Assessment Start: 08/05/21 10:14 Freq: Status: Active Protocol: Document 07/29/21 13:00 [facility] (Rec: 08/05/21 10:15 [facility] [id number]) Manual Assessments Soft Tissue Assessment Soft Tissue Mobility Assessment tightness and scar tissue adhesions over the hysterectomy scar, myofasical restrictions in the suprapubic fascia and over the bladder PT-OP-I Pelvic Floor Start: 07/29/21 12:59 Freq: Status: Active Protocol: Document 07/29/21 13:00 [facility] (Rec: 07/29/21 13:50 [facility] [id number]) Pelvic Floor Assessment Urine Pelvic Floor Surgery Yes: hysterectomy and rectocele repair Urinary Symptoms Urge Sensation,Hesitancy, Incomplete Emptying Other Urinary Symptoms urethral irritation and pain, this has been getting better with the estrodial Voiding Frequency very hour to 1.5 hours, frequent voiding prior to leaving the house Pelvic Clock Pelvic Clock 3-6 Guarding Pelvic Clock 6-9 Tightness Inter-Rectal Assessment left sided guarded and obturator internus tightness Contraction Ability Voluntary Contraction Moderate Voluntary Relaxation Moderate Manual Muscle Testing Left 3 Manual Muscle Testing Right 3 Manual Muscle Testing Anterior 3 Manual Muscle Testing Posterior 3 PT-OP-Q Treatments Start: 07/29/21 12:59 Freq: Status: Active Protocol: Document 08/14/21 10:33 [facility] (Rec: 08/14/21 11:26 [facility] [id number]) Therapeutic Exercises Supine Exercises hip flexor stretch Reps/Minutes nevin test position hold 1 min pelvic floor long holds Reps/Minutes 21.8 uv and max 39.7 Manual Therapy Treatment Soft Tissue Mobilization MFR over the suprapubic fascia Body Position Supine Comments good tolerance, MFR with gentle hip stretching into extension PT-OP-T Assessment and Plan Start: 07/29/21 12:59 Freq: Status: Active Protocol: Document 08/14/21 10:33 [facility] (Rec: 08/14/21 11:26 [facility] [id number]) Physical Therapy Assessment Assessment Summary Assessment pt did buy a hat to measure her urine 7-10 oz voided, today she had to leave the house early and she didn't go back 2-3 times to void. Doing a lot of the breathing and had to hold off a little bit on pelvic floor contractions due to urethral discomfort. Elevated pelvic floor resting tone initially today with EMG biofeedback but with breathing Ami was able to fully relax her pelvic floor to baseline. She increased her average contraction from 13.8 to 21.8. Pt to continue to work on relaxed awareness of the pelvic floor at home Physical Therapy Plan Frequency and Duration Frequency of Treatment 1x/Week Duration of Treatment 12 Plan of Care Start Date 07/29/21 Plan of Care End Date 10/21/21 Therapeutic Interventions Therapeutic Interventions Home Exercise Program,Manual Therapy,Neuromuscular Re- education,Patient/Caregiver Education,Self-Care/Home Management,Soft Tissue Mobilization,Therapeutic Exercises Modalities Biofeedback Next Visit Focus/Plan Next Note Type Treatment Note Next Visit Plan continue with EMG biofeedback, endurance training and MFR over the suprapubic fascia, gentle hip stretching
--- NOTE | 2021-09-30 12:16 | PT.OTN ---
Current Diagnoses Other specified disorders of muscle (09/30/21) Other female genital prolapse (09/30/21) Physical Therapy Treatment Note PT-OP-A Visit Information Start: 07/29/21 12:59 Freq: Status: Active Protocol: Document 09/30/21 11:15 [facility] (Rec: 09/30/21 11:38 [facility] [id number]) Out-Patient Physical Therapy Visit Information Visit Information Visit Type Treatment Note Visit Start Time 11:15 Visit Stop Time 12:00 Total Visit Minutes 45 Visit Number 4 PT-OP-B Current Condition Start: 07/29/21 12:59 Freq: Status: Active Protocol: Document 07/29/21 13:00 [facility] (Rec: 07/29/21 13:50 [facility] [id number]) Current Condition History of Current Condition Onset Date urethral pain began 3-4 months ago History of Current Condition The estrodial cream has been helping although she can still feel some symptoms, her primary complaint was urethral pain. She also saw her naturalpath who told her pelvic floor strengthening might help. hx of rectocele repair 1997. For the last 3 years she has had pain with intercourse due to things being too tight. No c/o leakage. Hx of ectopic in the , she ended up with a lot of adhesions She underwent a hysterectomy in 1992. She also has a history of urinary retention Pt notes she also has urgency, if she is getting ready to leave she will go into void x 3 times. Typical voiding is every hour to every couple of hours. Night time voiding is 1 xm per night to void. Treatment Goals Patient/Caregiver Goals goal to be able to hike and decreased c/o urgency and pain PT-OP-C Subjective Start: 07/29/21 12:59 Freq: Status: Active Protocol: Document 09/30/21 11:15 [facility] (Rec: 09/30/21 11:38 [facility] [id number]) OP-PT Subjective Patient Comments Patient Comments Yanira reports since I saw her last she has broken a toe and hurt her back, the urgency has gotten better, if she does too may kegels her urethra hurts but it is much better than it was. No c/o leaking Patient Reported Progress Improving PT-OP-F Manual Assessment Start: 08/05/21 10:14 Freq: Status: Active Protocol: Document 07/29/21 13:00 [facility] (Rec: 08/05/21 10:15 [facility] [id number]) Manual Assessments Soft Tissue Assessment Soft Tissue Mobility Assessment tightness and scar tissue adhesions over the hysterectomy scar, myofasical restrictions in the suprapubic fascia and over the bladder PT-OP-I Pelvic Floor Start: 07/29/21 12:59 Freq: Status: Active Protocol: Document 09/30/21 11:38 [facility] (Rec: 09/30/21 11:39 [facility] [id number]) Pelvic Floor Assessment Contraction Ability Voluntary Contraction Moderate Voluntary Relaxation Moderate Manual Muscle Testing Left 3 Manual Muscle Testing Right 3 Manual Muscle Testing Anterior 3 Manual Muscle Testing Posterior 3 PT-OP-Q Treatments Start: 07/29/21 12:59 Freq: Status: Active Protocol: Document 09/30/21 11:15 [facility] (Rec: 09/30/21 11:39 [facility] [id number]) Therapeutic Exercises Supine Exercises quick flicks Reps/Minutes x 10 reps hip flexor stretch Comments modified this to a half kneeling stretch or standing warrior one diaphragmatic breathing Reps/Minutes x 4 minutes pelvic floor long holds Reps/Minutes 10 reps Comments able to rest to baseline average 26 max 44.8 supine modified pelvic floor stretch Supine Exercise Name HEP Comments pt has been working on contract relax in this position Self-Care/Home Management Treatment Education Patient Education Home Exercise Program PT-OP-T Assessment and Plan Start: 07/29/21 12:59 Freq: Status: Active Protocol: Document 09/30/21 11:15 [facility] (Rec: 09/30/21 11:38 [facility] [id number]) Physical Therapy Assessment Goals 4 Impairment Myofascial tightness and guarding in the suprapubic fascia and over the bladder Custodial Goal (LTG) MFR techniques and stretches will be used to decrease the guarding and tightness of the suprapubic fascia improving the bladders ability to fully fill LTG Duration 12 weeks 3 Impairment Ami reports frequent urgency and frequency and feels that she retains urine. She notes she will often void up to 3 times before leaving the house. Short Term Goal (STG) Ami is educated in the urge deference technique and bladder retraining STG Duration 4 weeks Business Banker Goal (LTG) Ami reports a overall reduction in urgency and frequency. She is able to reduce her voiding to every 2. 5-3 hours during the day LTG Duration 12 weeks 2 Impairment Guarding and tightness of the left levator ani from 3-6 on the pelvic clock as well as the left obturator internus Short Term Goal (STG) Ami is educated in stretches for the pelvic floor and hip to help reduce tension and guarding of the levator ani. STG Duration 5 weeks 1 Impairment Urethral pain that began 4 months ago Custodial Goal (LTG) pt reports a overall reduction with urethral pain and reports no pain with voiding Urethral pain is intermittent now, she can feel it if she does too much of her pelvic floor. Otherwise it is better LTG Duration 12 weeks Assessment Summary Assessment Althea was able to relax to baseline today inbetween contractions. Her average pelvic floor contraction is really good at 26 uv. No urethral pain today with pelvic floor contractions. The stretching of her pelvis really seems to help relax her pelvic floor. She is able to work on contract/relax in this position. Physical Therapy Plan Frequency and Duration Frequency of Treatment 1x/Week Duration of Treatment 12 Plan of Care Start Date 07/29/21 Plan of Care End Date 10/21/21 Therapeutic Interventions Therapeutic Interventions Home Exercise Program,Manual Therapy,Neuromuscular Re- education,Patient/Caregiver Education,Self-Care/Home Management,Soft Tissue Mobilization,Therapeutic Exercises Modalities Biofeedback Next Visit Focus/Plan Next Note Type Treatment Note Next Visit Plan continue with EMG biofeedback, endurance training and MFR over the suprapubic fascia, gentle hip stretching. Review new standing hip stretches
--- NOTE | 2021-10-23 15:45 | PT.OTN ---
Current Diagnoses Other specified disorders of muscle (10/23/21) Other female genital prolapse (10/23/21) Physical Therapy Treatment Note PT-OP-A Visit Information Start: 07/29/21 12:59 Freq: Status: Active Protocol: Document 10/23/21 14:33 [facility] (Rec: 10/23/21 15:44 [facility] [id number]) Out-Patient Physical Therapy Visit Information Visit Information Visit Type Treatment Note Visit Start Time 14:35 Visit Stop Time 15:15 Total Visit Minutes 40 Visit Number 5 PT-OP-B Current Condition Start: 07/29/21 12:59 Freq: Status: Active Protocol: Document 07/29/21 13:00 [facility] (Rec: 07/29/21 13:50 [facility] [id number]) Current Condition History of Current Condition Onset Date urethral pain began 3-4 months ago History of Current Condition The estrodial cream has been helping although she can still feel some symptoms, her primary complaint was urethral pain. She also saw her naturalpath who told her pelvic floor strengthening might help. hx of rectocele repair 1997. For the last 3 years she has had pain with intercourse due to things being too tight. No c/o leakage. Hx of ectopic in the , she ended up with a lot of adhesions She underwent a hysterectomy in 1992. She also has a history of urinary retention Pt notes she also has urgency, if she is getting ready to leave she will go into void x 3 times. Typical voiding is every hour to every couple of hours. Night time voiding is 1 xm per night to void. Treatment Goals Patient/Caregiver Goals goal to be able to hike and decreased c/o urgency and pain PT-OP-C Subjective Start: 07/29/21 12:59 Freq: Status: Active Protocol: Document 10/23/21 14:33 [facility] (Rec: 10/23/21 15:44 [facility] [id number]) OP-PT Subjective Patient Comments Patient Comments size medium dilator has been working well, ready to move up in size, doing kegels every other day and that has helped, using the cream 5 times a week and the supposatory 3 times PT-OP-F Manual Assessment Start: 08/05/21 10:14 Freq: Status: Active Protocol: Document 07/29/21 13:00 [facility] (Rec: 08/05/21 10:15 [facility] [id number]) Manual Assessments Soft Tissue Assessment Soft Tissue Mobility Assessment tightness and scar tissue adhesions over the hysterectomy scar, myofasical restrictions in the suprapubic fascia and over the bladder PT-OP-I Pelvic Floor Start: 07/29/21 12:59 Freq: Status: Active Protocol: Document 09/30/21 11:38 [facility] (Rec: 09/30/21 11:39 [facility] [id number]) Pelvic Floor Assessment Contraction Ability Voluntary Contraction Moderate Voluntary Relaxation Moderate Manual Muscle Testing Left 3 Manual Muscle Testing Right 3 Manual Muscle Testing Anterior 3 Manual Muscle Testing Posterior 3 PT-OP-Q Treatments Start: 07/29/21 12:59 Freq: Status: Active Protocol: Document 10/23/21 14:33 [facility] (Rec: 10/23/21 15:44 [facility] [id number]) Therapeutic Exercises Supine Exercises quick flicks Supine Exercise Name HEP for urgency hip flexor stretch Supine Exercise Name HEP diaphragmatic breathing Supine Exercise Name HEP pelvic floor long holds Reps/Minutes 10 reps Comments average 25.2 max 37 supine modified pelvic floor stretch Supine Exercise Name HEP Manual Therapy Treatment Soft Tissue Mobilization MFR over the suprapubic fascia Body Position Supine Comments good tolerance, MFR with gentle hip stretching into extension Self-Care/Home Management Treatment Education Patient Education Home Exercise Program Other Education education on dilator use as we moved her to the size large today, education in HEP PT-OP-T Assessment and Plan Start: 07/29/21 12:59 Freq: Status: Active Protocol: Document 10/23/21 14:33 [facility] (Rec: 10/23/21 15:44 [facility] [id number]) Physical Therapy Assessment Goals 4 Impairment Myofascial tightness and guarding in the suprapubic fascia and over the bladder Cellophane Wrapping Examiner Goal (LTG) MFR techniques and stretches will be used to decrease the guarding and tightness of the suprapubic fascia improving the bladders ability to fully fill 10/23/21 excellent progress LTG Duration 12 weeks 3 Impairment Ami reports frequent urgency and frequency and feels that she retains urine. She notes she will often void up to 3 times before leaving the house. Some progress Short Term Goal (STG) Ami is educated in the urge deference technique and bladder retraining GOAL MET STG Duration 4 weeks [facility] Goal (LTG) Ami reports a overall reduction in urgency and frequency. She is able to reduce her voiding to every 2. 5-3 hours during the day 10/23/21 pt still working on this for home LTG Duration 12 weeks 2 Impairment Guarding and tightness of the left levator ani from 3-6 on the pelvic clock as well as the left obturator internus Short Term Goal (STG) Ami is educated in stretches for the pelvic floor and hip to help reduce tension and guarding of the levator ani. 10/23/21 goal met and pt is able to relax to baseline with her pelvic floor STG Duration 5 weeks 1 Impairment Urethral pain that began 4 months ago Cellophane Wrapping Examiner Goal (LTG) pt reports a overall reduction with urethral pain and reports no pain with voiding Urethral pain is much reduced overall at this point, Ami does her exercises every other day LTG Duration 12 weeks Assessment Summary Assessment Althea is not experiencing the urethral pain as much now, she is still experiencing the urgency and wants to work on stretching out her voiding time. Physical Therapy Plan Frequency and Duration Frequency of Treatment 1x/Week Duration of Treatment 12 Plan of Care Start Date 07/29/21 Plan of Care End Date 10/21/21 Discharge Physical Therapy Discharge Comments pt is doing really well with her HEP and although her urgency is not all the way gone, her urethral pain is much reduced and she is no longer
== END 2021-10-28 11:00 ==
LOC: PHYS 14:30
PROVIDERS: Family Provider Family Medicine; PCP Family Medicine; Referring Provider Family Medicine; Visit Provider Family Medicine
DX: M62.89 Other specified disorders of muscle (principal); N81.89 Other female genital prolapse
CPT/HCPCS: 97110; 97112; 97140; 97161; 97535

== ENCOUNTER → 2022-02-19 10:49 | Outpatient (CLI) | payer MEDICARE, OTHER, SELFPAY ==
[2022-02-19 12:05] LABS: Influenza A - CEPHEID Flu A NEGATIVE (NEGATIVE); Influenza B - CEPHEID Flu B NEGATIVE (NEGATIVE); Respiratory Syncytial Virus POSITIVE (Negative)
[2022-02-19 12:08] LABS: COVID-19 CEPHEID 4-PLEX PCR Negative (Negative)
== END ==
PROVIDERS: Family Provider Family Medicine; PCP Family Medicine; Visit Provider Registered Nurse
DX: R50.9 Fever, unspecified (principal)
CPT/HCPCS: 0241U

== ENCOUNTER → 2022-04-10 06:28 | Outpatient (CLI) | payer MEDICARE, OTHER, SELFPAY ==
[2022-04-10 07:44] LABS: Add Manual Diff / Slide Review NO; Basophils Absolute Auto 0 /uL (0-100); Basophils Percent Auto 0.4 % (0-2); Eosinophils Absolute Auto 100 /uL (0-450); Eosinophils Percent Auto 2.1 % (2-4); Hemoglobin 13.7 g/dL (12.0-16.0); Lymphocytes Absolute Auto 1300 /uL (1100-4500); Lymphocytes Percent Auto 38.1 % (25-40); Mean Corpuscular HGB Conc 34.4 % (30-36); Mean Corpuscular Hemoglobin 31.5 PG (26-34); Mean Corpuscular Volume 91.8 fL (80-100); Monocytes Absolute Auto 200 /uL (0-900); Monocytes Percent Auto 6.9 % (3-14); Neutrophils Absolute Auto 1800 /uL (1500-7000); Neutrophils Percent Auto 52.5 % (50-75); Platelet Count 155 X10^3/uL (150-400); Red Blood Cell Count 4.36 X10^6/uL (4.0-5.2); Red Cell Distribution Width 13.6 % (11.6-14.8); White Blood Cell Count 3.4 X10^3/uL (4.5-11.0)
[2022-04-10 07:53] LABS: Alanine Aminotransferase 26 IU/L (<35); Alkaline Phosphatase 71 U/L (38-126); Aspartate Aminotransferase 38 IU/L (14-36); BUN Creatinine Ratio 21.4 (6-22); Bilirubin Total 0.7 mg/dL (0.2-1.3); Blood Urea Nitrogen 12 mg/dL (7-17); Calcium 8.9 mg/dL (8.4-10.2); Carbon Dioxide 30 mmol/L (22-32); Chloride 98 mmol/L (98-107); Cholesterol 236 mg/dL (140-199); Estimated Glomerular Filt Rate > 60 mL/min (>60); Glucose 95 mg/dL (80-110); HDL Cholesterol 66 mg/dL (40-60); HEMOLYSIS < 15 (0-50); LDL Cholesterol Calculated 151 mg/dL (<100); Potassium 4.3 mmol/L (3.4-5.1); Sodium 136 mmol/L (137-145); Total Protein 8.4 g/dL (6.3-8.2); Triglycerides 97 mg/dL (35-150)
[2022-04-10 08:37] LABS: Free T4, Direct Thyroxine 1.09 ng/dL (0.78-2.19)
[2022-04-10 08:51] LABS: Thyroid Stimulating Hormone 1.23 uIU/mL (0.47-4.68)
[2022-04-10 16:35] LABS: Albumin 4.3 g/dL (3.5-5.0); Globulin 4.1 g/dL (1.7-4.1)
== END ==
PROVIDERS: Family Provider Family Medicine; PCP Family Medicine; Referring Provider Family Medicine; Visit Provider Family Medicine
DX: D69.3 Immune thrombocytopenic purpura (principal); E03.8 Other specified hypothyroidism; E06.3 Autoimmune thyroiditis; E78.5 Hyperlipidemia, unspecified
CPT/HCPCS: 36415; 80053; 80061; 84439; 84443; 84481; 85025

== ENCOUNTER 2022-04-29 08:49 | Emergency (ER) | payer MEDICARE, OTHER, SELFPAY ==
[2022-04-29] VITALS (7 sets, daily range): BP systolic 131–170; BP diastolic 78–99; PULSE 65–97; RESP 16–20; TEMP 36.8; O2SAT 95–100; BMI 22.6
--- NOTE | 2022-04-29 09:09 | DI.RAD.S_ITS ---
PROCEDURE: XR CHEST 1V INDICATIONS: arrhythmia TECHNIQUE: One view of the chest was acquired. COMPARISON: None. FINDINGS: Surgical changes and devices: None. Lungs and pleura: Lungs are clear. No pleural effusions or pneumothorax. Mediastinum: Mediastinal contours appear normal. Heart size is normal. Bones and chest wall: No suspicious bony lesions. Overlying soft tissues appear unremarkable. IMPRESSION: No evidence acute pulmonary process. Dictated by: Antoni Shepherd M.D. on 04/29/2022 at 9:56 Approved by: Antoni Shepherd M.D. on 04/29/2022 at 9:56
--- NOTE | 2022-04-29 09:12 | ED.GENADULT ---
HPI - General Adult General Chief complaint: Arrhythmia/Palpitations Stated complaint: rapid heartbeat/high BP/SOB Time Seen by Provider: 04/29/22 09:00 Source: patient Mode of arrival: Ambulatory History of Present Illness HPI narrative: 62-year-old female presenting with palpitations. Patient had an episode of palpitations and tachycardia/hypertension that occurred earlier in the day when she was having breakfast. No associated chest pain or significant shortness of breath, no diaphoresis. Patient reports prior episodes in the setting of being hyperthyroid. Patient recently stopped taking 1 of her weekly doses of levothyroxine, patient reports that she believes she is hyperthyroid currently and she is had similar symptoms in the setting of being hyperthyroid. On presentation, patient denies chest pain or shortness of breath, reports symptoms have resolved, no abdominal pain. Related Data Home Medications Medication Instructions Recorded Confirmed [MULTIVITAMIN] 1 cap PO BID ##0 03/25/17 01/28/22 [STAMETES 7] 1 cap PO BID ##0 03/25/17 01/28/22 [LIVER SUPPORT] 1 cap PO QDAY ##0 06/07/17 01/28/22 ibuprofen 200 mg capsule 200 mg PO PRN PRN ##0 06/07/17 01/28/22 [ESTRADIOL COMPOUND] vaginal .twice weekly ##0 09/16/17 01/28/22 [VITAMIN D3] 1,000 iu PO .qday ##0 09/16/17 01/28/22 vitamin B complex 1 cap PO DAILY 09/16/17 01/28/22 [CALCIUM] 600 mg PO QDAY ##0 05/26/18 01/28/22 Vitamin C PO DAILY 11/22/18 01/28/22 Previous Rx's Medication Instructions Recorded levothyroxine 88 mcg tablet 88 mcg PO DAILY #90 tabs 09/30/21 liothyronine 5 mcg tablet 5 mcg PO DAILY #90 tabs 09/30/21 estradiol 0.01% (0.1 mg/gram) 1 g vaginal DAILY Urethral 10/02/21 vaginal cream irritation #42.5 grams Estradiol marquez #30 ea 01/08/22 Allergies Allergy/AdvReac Type Severity Reaction Status Date / Time Sulfa (Sulfonamide Allergy Intermediate HIVES Verified 04/29/22 09:48 Antibiotics) [SULFA (SULFONAMIDE ANTIBIOTICS)] Patient History Medical History Cardiac arrhythmia (~2017) Chicken pox (~1959) Chronic idiopathic thrombocytopenia Chronic thoracic back pain GERD (gastroesophageal reflux disease) (~2018) Hx of lymphopenia Hyperlipidemia Osteoporosis (~2007) Piriformis syndrome of both sides Rheumatoid arthritis (~1985) Rubella (~1960) Skin cancer (~2017) Tachycardia Thoracic region somatic dysfunction Toe pain, left Surgical History Anesthesia History of repair of rectocele (~1992) History of tonsillectomy Status post hysterectomy (~1990) Family History Child Hypothyroidism Mother Age: 95 Essential hypertension Dementia Sister Hypothyroidism Father Dementia Social History Smoking Status: Former smoker Tobacco: How many years used: 10 second hand exposure: No alcohol intake: current (a glass of wine one every 2 weeks.) substance use type: does not use Smoking Status: Former smoker Exam Narrative Exam Narrative: Vitals reviewed. Nursing note reviewed Constitutional: interactive HENT: Moist mucous membranes EYES: No scleral icterus NECK: no masses CV: Well perfused peripherally, no cyanosis present PULM: Unlabored respirations, symmetric chest rise ABD: Non-distended MS: No gross deformities, no asymmetric edema noted SKIN: Warm and dry. PSYCH: Appropriate affect NEURO: Follows simple commands, moves extremities, interactive with exam Initial Vital Signs Initial Vital Signs: Vital Signs Temperature 98.3 F 04/29/22 08:49 Pulse Rate 95 H 04/29/22 08:49 Respiratory Rate 18 04/29/22 08:49 Blood Pressure 168/93 H 04/29/22 08:49 Pulse Oximetry 100 04/29/22 08:49 Oxygen Delivery Method 04/29/22 08:49 Course Orders Ordered: ED Orders 04/29/22 09:09 CXR [XR chest 1V] Stat BNP [NT-proBNP (BNP-Adult 18+)] Stat CBC Auto Diff [Complete Blood Count AUTO DIFF] Stat CMP [Comprehensive Metabolic Panel] Stat Free T4, Direct Thyroxine Stat TSH [Thyroid Stimulating Hormone] Stat Trop I [Troponin I] Stat EKG-12 Lead Stat Vital Signs Vital signs: Vital Signs - 8 hr 04/29/22 08:49 Temperature 98.3 F Pulse Rate 95 H Respiratory Rate 18 Blood Pressure 168/93 H Pulse Oximetry 100 Oxygen Delivery Method Room Air Medical Decision Making Lab Data 04/29/22 09:04 04/29/22 09:04 Labs: Lab Results 04/29/22 04/29/22 04/29/22 Range/Units 09:04 09:04 09:04 WBC 3.8 L (4.5-11.0) X10^3/uL RBC 4.45 (4.0-5.2) X10^6/uL Hgb 14.2 (12.0-16.0) g/dL Hct 40.6 (36-46) % MCV 91.2 (80-100) fL MCH 31.8 (26-34) PG MCHC 34.9 (30-36) % RDW 13.7 (11.6-14.8) % Plt Count 143 L (150-400) X10^3/uL Neut % (Auto) 50.2 (50-75) % Lymph % (Auto) 40.3 H (25-40) % [place] % (Auto) 6.5 (3-14) % Eos % (Auto) 2.2 (2-4) % Baso % (Auto) 0.8 (0-2) % Neut # (Auto) 1900 (0011-4719) /uL Lymph # (Auto) 1500 (7866-7929) /uL [place] # (Auto) 200 (0-900) /uL Eos # (Auto) 100 (0-450) /uL Baso # (Auto) 0 (0-100) /uL Sodium 138 (137-145) mmol/L Potassium 3.8 (3.4-5.1) mmol/L Chloride 98 (98-107) mmol/L Carbon Dioxide 26 (22-32) mmol/L BUN 12 (7-17) mg/dL Creatinine 0.56 (0.52-1.04) mg/dL Estimated GFR > 60 (>60) mL/min BUN/Creatinine Ratio 21.4 (6-22) Glucose 125 H (80-110) mg/dL Calcium 9.1 (8.4-10.2) mg/dL Total Bilirubin 0.6 (0.2-1.3) mg/dL AST 39 H (14-36) IU/L ALT 23 (<35) IU/L Alkaline Phosphatase 78 (38-126) U/L Troponin I 0.025 (0.01-0.034) ng/mL NT-Pro-B Natriuret Pep 124 (<125) pg/mL Total Protein 8.8 H (6.3-8.2) g/dL Albumin 4.5 (3.5-5.0) g/dL Globulin 4.3 H (1.7-4.1) g/dL Albumin/Globulin Ratio 1.0 (1.0-2.8) TSH 4.88 H D (0.47-4.68) uIU/mL Free T4 1.08 (0.78-2.19) ng/dL MDM Narrative Medical decision making narrative: 66-year-old female presenting with palpitations and tachycardia. On presentation, vital signs notable for hypertension, normal range heart rate. Physical exam notable for a well-appearing 66-year-old female in no acute distress, reassuring cardiopulmonary exam, benign abdomen. Initial concern for ACS versus primary cardiac arrhythmia, atrial fibrillation, medication effect in the setting active levothyroxine dosing, pulmonary embolism, infectious etiology including focal bacterial infection, viral syndrome. EKG obtained on presentation without evidence of ischemia or significant arrhythmia, patient remains without episodes of tachycardia on cardiac telemetry while in the emergency department. Patient's free T4 is normal indicating a grossly appropriate levothyroxine dosing regimen. No clear evidence of infectious etiology. Screening labs without electrolyte derangements. On repeat evaluation, patient continues to have reassuring evaluation, patient's blood pressure down trending while in the emergency department without intervention. Patient without episodes of tachycardia throughout emergency department stay. Discussed plan for discharge and close outpatient follow up. Return precautions discussed. Discharge Plan Departure Patient Disposition: Home Clinical Impression: Heart palpitations Instructions: DI for Arrhythmias Activity Restrictions/Additional Instructions: Please follow up in the outpatient setting with your primary care physician as discussed. Please return to the emergency department if you have recurrent or new symptoms. Prescriptions: No Action vitamin B complex capsule 1 cap PO DAILY [MULTIVITAMIN] 1 cap PO BID Qty: 0 [STAMETES 7] 1 cap PO BID Qty: 0 [LIVER SUPPORT] 1 cap PO QDAY Qty: 0 ibuprofen 200 MG capsule 200 mg PO PRN PRNQty: 0 [ESTRADIOL COMPOUND] Vaginal .twice weekly Qty: 0 [VITAMIN D3] 1,000 iu PO .qday Qty: 0 [CALCIUM] 600 mg PO QDAY Qty: 0 estradiol 0.01 % (0.1 mg/gram) cream 1 g vaginal DAILY Qty: 42.5 4RF Rx Instructions: Apply to urethral opening daily until symptoms resolve (DME) Estradiol marquez 10mcg See Rx Instructions .Route .MEDSUPPLY Qty: 30 2RF Rx Instructions: As directed Vitamin C PO DAILY levothyroxine 88 mcg tablet 88 mcg PO DAILY Qty: 90 3RF liothyronine 5 mcg tablet 5 mcg PO DAILY Qty: 90 3RF Referrals: Josep Steen DO [Primary Care Provider] - Stand Alone Forms: Patient Portal/API
[2022-04-29 09:23] LABS: Add Manual Diff / Slide Review NO; Basophils Absolute Auto 0 /uL (0-100); Basophils Percent Auto 0.8 % (0-2); Eosinophils Absolute Auto 100 /uL (0-450); Eosinophils Percent Auto 2.2 % (2-4); Hematocrit 40.6 % (36-46); Hemoglobin 14.2 g/dL (12.0-16.0); Lymphocytes Absolute Auto 1500 /uL (1100-4500); Lymphocytes Percent Auto 40.3 % (25-40); Mean Corpuscular HGB Conc 34.9 % (30-36); Mean Corpuscular Hemoglobin 31.8 PG (26-34); Mean Corpuscular Volume 91.2 fL (80-100); Monocytes Absolute Auto 200 /uL (0-900); Monocytes Percent Auto 6.5 % (3-14); Neutrophils Absolute Auto 1900 /uL (1500-7000); Neutrophils Percent Auto 50.2 % (50-75); Platelet Count 143 X10^3/uL (150-400); Red Blood Cell Count 4.45 X10^6/uL (4.0-5.2); Red Cell Distribution Width 13.7 % (11.6-14.8); White Blood Cell Count 3.8 X10^3/uL (4.5-11.0)
[2022-04-29 09:27] LABS: Alanine Aminotransferase 23 IU/L (<35); Albumin 4.5 g/dL (3.5-5.0); Alkaline Phosphatase 78 U/L (38-126); Aspartate Aminotransferase 39 IU/L (14-36); BUN Creatinine Ratio 21.4 (6-22); Bilirubin Total 0.6 mg/dL (0.2-1.3); Blood Urea Nitrogen 12 mg/dL (7-17); Calcium 9.1 mg/dL (8.4-10.2); Carbon Dioxide 26 mmol/L (22-32); Chloride 98 mmol/L (98-107); Estimated Glomerular Filt Rate > 60 mL/min (>60); Globulin 4.3 g/dL (1.7-4.1); Glucose 125 mg/dL (80-110); HEMOLYSIS 27 (0-50); Potassium 3.8 mmol/L (3.4-5.1); Sodium 138 mmol/L (137-145); Total Protein 8.8 g/dL (6.3-8.2)
[2022-04-29 09:39] LABS: NT-proBNP (BNP-Adult 18+) 124 pg/mL (<125); Troponin I 0.025 ng/mL (0.01-0.034)
[2022-04-29 09:50] LABS: Free T4, Direct Thyroxine 1.08 ng/dL (0.78-2.19)
[2022-04-29 10:04] LABS: Thyroid Stimulating Hormone 4.88 uIU/mL (0.47-4.68)
== END 2022-04-29 10:56 | disposition home or self-care (01) ==
PROVIDERS: Emergency Provider Emergency Medicine; Family Provider Family Medicine; PCP Family Medicine
DX: R00.2 Palpitations (principal); R79.89 Other specified abnormal findings of blood chemistry
CPT/HCPCS: 36415; 71045; 80053; 83880; 84439; 84443; 84484; 85025; 93005; 93010; 99284

== ENCOUNTER → 2022-05-06 13:45 | Outpatient (CLI) | payer MEDICARE, OTHER, SELFPAY ==
--- NOTE | 2022-05-21 08:27 | PM.CARDMON.1 ---
[employer] Report Referral & Results Date Patient Seen: 05/06/22 Requesting provider: Josep Steen Indication: Palpitations Duration of monitoring (days): 7 Diary information: There were 2 patient triggered events and 3 patient diary entries Patient diary entries were associated with sinus rhythm only Patient triggered events were associated with sinus rhythm, PACs and SVT Data: Minimum heart rate was 52 beats per minute at 03:15 on 05/13/2022 Maximum sinus heart rate was 141 beats per minute at 15:55 on 05/10/2022 Maximum overall heart rate was 154 beats per minute at 12:16 on 05/09/2022 during a run of SVT Less than 1% of identified beats were ventricular or supraventricular ectopic in origin, which would classify them as rare. There were 14 runs of SVT with the fastest being a 7 beat run at the above rate of 154 beats per minute, the longest lasting 15 beats. Some of the episodes of SVT may actually be atrial tachycardia rather than true SVT There were no pauses of 3 seconds or longer episodes of atrial fibrillation identified on this study Impression: 7 day grappler demonstrating rare PACs and very rare very brief runs of SVT Based on patient triggered events the rare PACs may be a source of symptoms Clinical correlation suggested
== END ==
PROVIDERS: Family Provider Family Medicine; PCP Family Medicine; Referring Provider Family Medicine; Visit Provider Family Medicine
DX: R00.2 Palpitations (principal)
CPT/HCPCS: 93242; 93244

== ENCOUNTER → 2022-07-16 12:23 | Outpatient (CLI) | payer MEDICARE, OTHER, SELFPAY ==
[2022-07-16 13:53] LABS: TSH w/ Reflex to FT4 9.48 uIU/mL (0.47-4.68)
[2022-07-16 14:23] LABS: Free T4, Direct Thyroxine 1.17 ng/dL (0.78-2.19)
== END ==
PROVIDERS: Family Provider Family Medicine; PCP Family Medicine; Referring Provider Family Medicine; Visit Provider Family Medicine
DX: E03.9 Hypothyroidism, unspecified (principal)
CPT/HCPCS: 36415; 84439; 84443

== ENCOUNTER → 2022-08-21 06:55 | Outpatient (CLI) | payer MEDICARE, OTHER, SELFPAY ==
[2022-08-21 08:52] LABS: TSH w/ Reflex to FT4 4.15 uIU/mL (0.47-4.68)
[2022-08-24 09:10] LABS: Cholesterol, Total 231 mg/dL (100-199); HDL-Cholesterol 82 mg/dL (>39); LDL Particle 1144 nmol/L (<1000); LDL Size 21.9 nm (>20.5); LDL-Cholsterol 132 mg/dL (0-99); LP-IR Score <25 (<=45); Small LDL- Particle <90 nmol/L (<=527); Triglycerides 99 mg/dL (0-149)
== END ==
PROVIDERS: Family Provider Family Medicine; PCP Family Medicine; Referring Provider Family Medicine; Visit Provider Family Medicine
DX: E03.8 Other specified hypothyroidism (principal); E78.5 Hyperlipidemia, unspecified; E06.3 Autoimmune thyroiditis
CPT/HCPCS: 36415; 80061; 83704; 84443

== ENCOUNTER → 2023-02-19 07:09 | Outpatient (CLI) | payer MEDICARE, OTHER, SELFPAY ==
[2023-02-19 09:32] LABS: Free T4, Direct Thyroxine 1.23 ng/dL (0.78-2.19)
[2023-02-22 03:57] LABS: Cholesterol, Total 212 mg/dL (100-199); HDL-Cholesterol 75 mg/dL (>39); HDL-Particle (Total) 34.6 umol/L (>=30.5); Historical Reading Comment: (.); LDL Particle 1066 nmol/L (<1000); LDL Size 22.2 nm (>20.5); LDL-Cholsterol 121 mg/dL (0-99); LP-IR Score <25 (<=45); Small LDL- Particle <90 nmol/L (<=527); Triglycerides 91 mg/dL (0-149)
== END ==
PROVIDERS: Family Provider Family Medicine; PCP Family Medicine; Referring Provider Family Medicine; Visit Provider Family Medicine
DX: E78.5 Hyperlipidemia, unspecified (principal); E03.9 Hypothyroidism, unspecified
CPT/HCPCS: 36415; 80061; 83704; 84439; 84443

== ENCOUNTER → 2023-05-18 10:58 | Outpatient (CLI) | payer MEDICARE, OTHER, SELFPAY ==
[2023-05-18 13:19] LABS: Free T3, Triiodothyronine Free 3.39 pg/mL (2.77-5.27); Free T4, Direct Thyroxine 1.56 ng/dL (0.78-2.19)
[2023-05-18 13:33] LABS: Thyroid Stimulating Hormone 1.32 uIU/mL (0.47-4.68)
== END ==
PROVIDERS: Family Provider Family Medicine; PCP Family Medicine; Referring Provider Family Medicine; Visit Provider Family Medicine
DX: E03.8 Other specified hypothyroidism (principal); E06.3 Autoimmune thyroiditis
CPT/HCPCS: 36415; 84439; 84443; 84481

== ENCOUNTER → 2023-08-23 13:24 | Outpatient (CLI) | payer MEDICARE, OTHER, SELFPAY ==
[2023-08-23 15:52] LABS: Free T3, Triiodothyronine Free 2.82 pg/mL (2.77-5.27); Free T4, Direct Thyroxine 1.14 ng/dL (0.78-2.19)
[2023-08-23 16:05] LABS: Thyroid Stimulating Hormone 5.47 uIU/mL (0.47-4.68)
== END ==
PROVIDERS: Family Provider Family Medicine; PCP Family Medicine; Referring Provider Physician Assistant; Visit Provider Physician Assistant
DX: E03.9 Hypothyroidism, unspecified (principal); Z79.899 Other long term (current) drug therapy
CPT/HCPCS: 36415; 84439; 84443; 84481

== ENCOUNTER → 2023-10-20 15:32 | Outpatient (CLI) | payer MEDICARE, OTHER, SELFPAY ==
[2023-10-20 18:44] LABS: Free T4, Direct Thyroxine 1.33 ng/dL (0.78-2.19)
[2023-10-20 18:57] LABS: Thyroid Stimulating Hormone 1.99 uIU/mL (0.47-4.68)
== END ==
PROVIDERS: Family Provider Family Medicine; PCP Family Medicine; Referring Provider Family Medicine; Visit Provider Family Medicine
DX: E03.9 Hypothyroidism, unspecified (principal)
CPT/HCPCS: 36415; 84439; 84443; 84481

== ENCOUNTER → 2024-06-10 07:33 | Outpatient (CLI) | payer MEDICARE, OTHER, SELFPAY ==
[2024-06-10 08:36] LABS: Add Manual Diff / Slide Review NO; Basophils Absolute Auto 0 /uL (0-100); Basophils Percent Auto 0.4 % (0-2); Eosinophils Absolute Auto 100 /uL (0-450); Eosinophils Percent Auto 2.1 % (2-4); Hematocrit 39.6 % (36-46); Hemoglobin 14.1 g/dL (12.0-16.0); Lymphocytes Absolute Auto 1200 /uL (1100-4500); Lymphocytes Percent Auto 26.2 % (25-40); Mean Corpuscular HGB Conc 35.5 % (30-36); Mean Corpuscular Hemoglobin 32.7 PG (26-34); Mean Corpuscular Volume 92.2 fL (80-100); Monocytes Absolute Auto 300 /uL (0-900); Monocytes Percent Auto 7.3 % (3-14); Neutrophils Absolute Auto 2800 /uL (1500-7000); Platelet Count 155 X10^3/uL (150-400); Red Cell Distribution Width 13.4 % (11.6-14.8); White Blood Cell Count 4.4 X10^3/uL (4.5-11.0)
[2024-06-10 08:50] LABS: Alanine Aminotransferase 37 IU/L (<35); Albumin 4.4 g/dL (3.5-5.0); Albumin Globulin Ratio 1.3 (1.0-2.8); Alkaline Phosphatase 62 U/L (38-126); Aspartate Aminotransferase 47 IU/L (14-36); BUN Creatinine Ratio 24.6 (6-22); Blood Urea Nitrogen 15 mg/dL (7-17); Calcium 9.2 mg/dL (8.4-10.2); Carbon Dioxide 30 mmol/L (22-32); Chloride 98 mmol/L (98-107); Cholesterol 208 mg/dL (140-199); Estimated Glomerular Filt Rate > 60 mL/min (>60); Globulin 3.5 g/dL (1.7-4.1); Glucose 93 mg/dL (80-110); HDL Cholesterol 76 mg/dL (40-60); HEMOLYSIS < 15 (0-50); LDL Cholesterol Calculated 117 mg/dL (<100); Potassium 4.7 mmol/L (3.4-5.1); Sodium 133 mmol/L (137-145); Total Protein 7.9 g/dL (6.3-8.2); Triglycerides 76 mg/dL (35-150)
[2024-06-10 09:08] LABS: Free T3, Triiodothyronine Free 2.71 pg/mL (2.77-5.27); Free T4, Direct Thyroxine 1.26 ng/dL (0.78-2.19)
[2024-06-10 09:21] LABS: Thyroid Stimulating Hormone 3.34 uIU/mL (0.47-4.68)
== END ==
PROVIDERS: Family Provider Family Medicine; PCP Family Medicine; Referring Provider Family Medicine; Visit Provider Family Medicine
DX: D69.3 Immune thrombocytopenic purpura (principal); E78.00 Pure hypercholesterolemia, unspecified; E03.8 Other specified hypothyroidism; E06.3 Autoimmune thyroiditis; Z79.899 Other long term (current) drug therapy
CPT/HCPCS: 36415; 80053; 80061; 84439; 84443; 84481; 85025

== ENCOUNTER → 2024-10-06 09:59 | Outpatient (CLI) | payer MEDICARE, OTHER, SELFPAY ==
[2024-10-06 13:09] LABS: TSH w/ Reflex to FT4 6.09 uIU/mL (0.47-4.68)
[2024-10-06 13:38] LABS: Free T4, Direct Thyroxine 1.14 ng/dL (0.78-2.19)
== END ==
PROVIDERS: Family Provider Family Medicine; PCP Family Medicine; Referring Provider Family Medicine; Visit Provider Family Medicine
DX: E03.8 Other specified hypothyroidism (principal); E06.3 Autoimmune thyroiditis
CPT/HCPCS: 36415; 84439; 84443